=== PATIENT | male | born 1995 | race Caucasian/White ===

== ENCOUNTER 2022-05-10 19:29 | Emergency (ER) | payer SELFPAY ==
[2022-05-10] MEDS ORDERED: hydrOXYzine 25 MG TAB ONE (20:24)
== END 2022-05-10 21:55 | disposition home or self-care (01) ==
LOC: CSHERS 19:29
DX: F41.1 Generalized anxiety disorder (principal); K21.9 Gastro-esophageal reflux disease without esophagitis
CPT/HCPCS: 99284